=== PATIENT | female | born 1965 | race Hispanic/Latino ===

== ENCOUNTER 2017-08-16 08:26 | Outpatient (CLI) | payer BC ==
--- NOTE | 2017-08-16 14:49 | Fluoroscopy Report ---
UPPER GI SERIES AND AIR-CONTRAST HISTORY: Gastroesophageal reflux disease without esophagitis. COMPARISON: Barium swallow dated 02/10/13. FINDINGS: 87 fluoroscopic images were captured. The band shover image demonstrates a relatively normal appearance and position of the lap band device in the left upper quadrant. The esophagus is moderately dilated on today's exam. There is marked delay in esophageal emptying. Prior to the addition of air contrast, a moderate to large hiatal hernia was witnessed. After addition of air contrast into the stomach, the sliding hiatal hernia disappears. This suggests slippage at the lap band site. The gastric cavity is within normal limits. There is no evidence for ulceration or mass. No abnormal dilatation. The duodenal bulb and duodenal sweep are within normal limits. Impression: Dilated esophagus with marked delay in emptying. No reflux was witnessed during this exam. Moderate to large sliding hiatal hernia as described. Possible slippage of the lap band device.
== END 2017-08-16 08:27 | disposition home or self-care (01) ==
LOC: FLUORO 08:26
PROVIDERS: ATTEND Specialist
DX: K21.9 Gastro-esophageal reflux disease without esophagitis (principal); K44.9 Diaphragmatic hernia without obstruction or gangrene; K22.8 Other specified diseases of esophagus
CPT/HCPCS: 74247

== ENCOUNTER 2019-04-30 06:33 | Day surgery (SDC) | payer BC ==
[~2019-04-30 06:33] MED LIST: SODIUM CHLORIDE 0.9% 1000 ML 1,000 ML IV SCH
[2019-04-30] MEDS ORDERED: WATER FOR IRRIG STERILE 250 ML BOTTLE IR ONE (07:24)
--- NOTE | 2019-04-30 07:41 | Anesthesia Consultation ---
Anesthesia Consult and Med Hx Date of service: 04/30/19 - Airway Anesthetic Teeth Evaluation: Crowns ROM Head & Neck: Adequate Mental/Hyoid Distance: Adequate Mallampati Class: Class II Intubation Access Assessment: Probably Good - Pulmonary Exam CTA: Yes - Cardiac Exam Cardiac Exam: RRR - Pre-Operative Health Status ASA Pre-Surgery Classification: ASA2 Proposed Anesthetic Plan: MAC - Pulmonary Hx Smoking: No (Quit 30 years ago) Hx Respiratory Symptoms: No Hx Sleep Apnea: No - Cardiovascular System Hx Hypertension: No Hx Cardia Arrhythmia: No Hx Heart Murmur: No - Central Nervous System Hx Neuromuscular Disorder: No Hx Psychiatric Problems: No - Gastrointestinal Hx Gastroesophageal Reflux Disease: Yes - Endocrine Hx Renal Disease: No Hx Liver Disease: No - Other Systems Hx Alcohol Use: No Hx Substance Use: No Hx Obesity: Yes - Additional Comments Anesthesia Medical History Comments: Patient once had post operative nausea and vimiting
--- NOTE | 2019-04-30 07:43 | Anesthesia Day of Surgery ---
Anesthesia Day of Surgery - Day of Surgery Patient Examined: Yes Patient H&P Reviewed: Yes Patient is NPO: Yes
[2019-04-30] MEDS ORDERED: LIDOCAINE (2%) 20 MG/1 ML VIAL 20 ML MDV INFILTRATI ONE (07:53)
[2019-04-30] MEDS ORDERED: fentaNYL 100 MCG/2 ML INJ ONE (07:53)
[2019-04-30] MEDS ORDERED: PROPOFOL 200 MG/20 ML VIAL IV ONE (07:53)
--- NOTE | 2019-04-30 08:09 | Discharge Summary ---
Providers - Providers Date of Admission: 04/30/2019 Date of discharge: 04/30/19 Attending physician: JOSE ELIAS AVALOS MD Primary care physician: SAFIA MAS Hospitalization Reason for admission: egd Procedures: egd Hospital course: pt had uneventful EGD to evaluated for reflux Disposition: DC-01 TO HOME OR SELFCARE Core Measure Documentation - Palliative Care Palliative Care/ Comfort Measures: Not Applicable - Core Measures Any of the following diagnoses?: none Exam - Physical Exam Narrative exam: unchanged from H&P - Constitutional Vitals: Temp Pulse Resp BP Pulse Ox 97.6 F 61 20 131/79 100 04/30/19 07:27 04/30/19 07:27 04/30/19 07:27 04/30/19 07:27 04/30/19 07:27 Plan Activity: no restrictions Diet: low carbohydrate Follow up with: SAFIA MAS MD [Primary Care Provider] - 7 Days
--- NOTE | 2019-04-30 08:20 | Operative Report ---
Operative Report Operative Report: OPERATIVE REPORT - EGD DATE 04/30/2019 SURGERY: Upper endoscopy. SURGEON: Hailey Beltrán M.D. TELEVISION ANALYZER: N/A PRE OP DX: 1. history of gastric banding 2. GERD POST OP DX: mild esophagitis TYPE OF ANESTHESIA: MAC. ESTIMATED BLOOD LOSS: None. COMPLICATIONS: None. SPECIMENS REMOVED: GE junction bx FINDINGS: 1. Band appears in good position 2. mild esophagitis 2. Otherwise, normal stomach and first portion of duodenum. INDICATIONS:INDICATION FOR PROCEDURE: Patient is a 54year-old female with a long history of morbid obesity and hx of gastric banding who has a history of significant gastric reflux. She is here today to evaluate for pathology related to her reflux and band position. PROCEDURE DETAILS: After consent was reviewed, patient was taken back to the operating room where patient was placed in the left lateral decubitus position and a bite block was placed in the mouth. After a time-out was called, MAC anesthesia was initiated. I then passed the endoscope into her oropharynx, into her esophagus, visualized the entire esophagus, which showed mild esophagitis. There was a considerable amount of clear fluid that was in the esophagus that had to be aspirated. A cold biopsy was taken at the GE junction. There was an expected narrowing at the proximal stomach consistent with external compression from the band. It appeared in adequate position and was easily traversed. once beyond the band the remainder of the stomach distended properly. I then visualized the stomach and the first portion of the duodenum and there were no abnormalities I could clearly visualize. I then retroflexed the scope in the stomach and visualized the underside of the band. No abnormalities were seen. I then desufflated the stomach and removed the endoscope. Patient tolerated procedure well and was transferred to recovery room in good and stable condition.
[2019-04-30 08:40] VITALS: BP 119/65
--- NOTE | 2019-04-30 10:43 | Post Anesthesia Evaluation ---
- Post Anesthesia Evaluation Patient Participated: Yes Airway Patent: Yes Stable Respiratory Function: Yes Nausea/Vomiting: No Temp > 96.8F: Yes Pain Manageable: Yes Adequeate Hydration: Yes Anesthesia Complications: No Block Receding Appropriately: Not Applicable Patient on Ventilator: No
== END 2019-04-30 06:34 | disposition home or self-care (01) ==
LOC: GIO 06:33
PROVIDERS: ATTEND Surgery
DX: K21.0 Gastro-esophageal reflux disease with esophagitis (principal); E66.9 Obesity, unspecified; K31.89 Other diseases of stomach and duodenum; Z98.890 Other specified postprocedural states; Z79.899 Other long term (current) drug therapy; Z87.891 Personal history of nicotine dependence; Z91.013 Allergy to seafood; Z68.35 Body mass index [BMI] 35.0-35.9, adult
CPT/HCPCS: 43239; 88305; J2704; J3010; J7030; 88312

== ENCOUNTER 2020-08-18 09:46 | Outpatient (CLI) | payer BC | END 2020-08-18 09:47 | disposition home or self-care (01) | LOC: LAB 09:46 | PROVIDERS: ATTEND Internal Medicine | DX: N95.8 Other specified menopausal and perimenopausal disorders (principal); R63.5 Abnormal weight gain | CPT/HCPCS: 36415; 82533; 82627; 82672; 83036; 83525; 84144; 84402; 84436; 84443; 84480 ==

== ENCOUNTER 2020-11-12 12:33 | Outpatient (CLI) | payer BC ==
--- NOTE | 2020-11-12 14:15 | Fluoroscopy Report ---
BARIUM SWALLOW HISTORY: Left band adjustment, reflux COMPARISON: 08/16/2017 FINDINGS: Deglutition was normal. The esophagus is normal caliber and mucosal pattern. Normal motility. A lap b and device is identified and in good position. No evidence for obstruction, slippage or erosion. Dr. Beltrán of bariatric surgery was present for LAP-BAND adjustment. Fluoroscopy guidance was utilize d to identify and access the lap band port. Approximately 0.5 cc of fluid was injected into the port. Additional esophagus images were obtained to evaluate the new setting of the lap band. IMPRESSION: Unremarkable barium swallow and lap band. Lap band adjustment was made under fluoroscopy with Dr. Beltrán. Fluoroscopy time: 6.3 minutes. Fluoroscopic images: 36 Signer Name: Travis Tapia Jr, MD Signed: 11/12/2020 2:10 PM Workstation Name: [id number]
== END 2020-11-12 12:34 | disposition home or self-care (01) ==
LOC: FLUORO 12:33
PROVIDERS: ATTEND Surgery
DX: K21.9 Gastro-esophageal reflux disease without esophagitis (principal); E66.01 Morbid (severe) obesity due to excess calories
CPT/HCPCS: 74221